=== PATIENT | female | born 2000 | race Caucasian/White ===

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

== ENCOUNTER 2021-01-16 14:40 | Outpatient (CLI) | payer OTHER | END 2021-01-16 14:41 | disposition home or self-care (01) | LOC: LAB.S 14:40 | PROVIDERS: ATTEND Internal Medicine | DX: Z13.89 Encounter for screening for other disorder (principal) | CPT/HCPCS: 36415; 86317 ==

== ENCOUNTER 2022-05-24 21:35 | Emergency (ER) | payer MEDICAID, OTHER ==
[2022-05-24 22:48] LABS: BASOPHILS # (AUTO) 0.2 10^3/uL (0.0-0.1); BASOPHILS % (AUTO) 2.3 %; EOSINOPHILS % (AUTO) 12.8 %; HCT - HEMATOCRIT 36.3 % (37.0-47.0); HGB - HEMOGLOBIN 12.2 g/dL (12.0-16.0); LYMPHOCYTES # (AUTO) 2.7 10^3/uL (1.5-3.5); LYMPHOCYTES % (AUTO) 34.2 %; MEAN CORPUSCULAR HEMOGLOBIN 31.4 pg (27.0-31.0); MEAN CORPUSCULAR HGB CONC 33.6 g/dL (32.0-36.0); MEAN CORPUSCULAR VOLUME 93.3 fL (81.0-99.0); MEAN PLATELET VOLUME 11.1 fL (7.9-10.8); MONOCYTES % (AUTO) 12.9 %; NEUTROPHILS % (AUTO) 37.5 %; PLT - PLATELET COUNT 322 10^3/uL (130-450); RED BLOOD COUNT 3.89 10^6/uL (4.20-5.40); RED CELL DISTRIBUTION WIDTH 12.9 % (12.0-15.0); WHITE BLOOD COUNT 7.9 x10^3/uL (4.8-10.8)
[2022-05-24 22:51] LABS: SLIDE REVIEW? Indicated
[2022-05-24 23:00] LABS: ALBUMIN 4.3 g/dL (3.2-5.5); ALBUMIN/GLOBULIN RATIO 1.3 (1.0-2.2); BILIRUBIN,TOTAL 0.3 mg/dL (0.2-1.0); CALCIUM 9.3 mg/dL (8.5-10.3); CREATININE 0.9 mg/dL (0.4-1.0); POTASSIUM 4.1 mmol/L (3.5-5.0); TOTAL PROTEIN 7.6 g/dL (6.7-8.2)
[2022-05-24] MEDS ORDERED: SODIUM CHLORIDE 0.9% 1,000 ML IV STA (23:08)
[2022-05-24] MEDS ORDERED: ONDANSETRON 4 MG/2 ML VIAL IVP STA (23:08)
[2022-05-24] MEDS ORDERED: MORPHINE 2 MG/ML CARPUJECT IVP STA (23:08)
[2022-05-24 23:12] LABS: DIFFERENTIAL COMMENT MANUAL=AUTO DIFF; PLATELET ESTIMATE, MANUAL NORMAL (130-450,000) (NORMAL); PLATELET MORPHOLOGY NORMAL APPEARANCE (NORMAL); RBC MORPHOLOGY (MULTIPLE) NORMAL APPEARANCE (NORMAL)
[2022-05-24 23:51] LABS: BILIRUBIN,URINE NEGATIVE (NEGATIVE); GLUCOSE, URINE (UA) NEGATIVE (NEGATIVE); KETONES,URINE (UA) NEGATIVE (NEGATIVE); LEUKOCYTE ESTERASE, URINE NEGATIVE (NEGATIVE); NITRITE,URINE NEGATIVE (NEGATIVE); OCCULT BLOOD,URINE NEGATIVE (NEGATIVE); PROTEIN,URINE NEGATIVE (NEGATIVE); UROBILINOGEN,URINE 0.2 (NORMAL) E.U./dL (NORMAL)
[2022-05-24 23:53] LABS: CLARITY,URINE HAZY (CLEAR); HCG UR QUAL NEGATIVE
[2022-05-25] LABS: AMORPHOUS SEDIMENT,UR Few /LPF; BACTERIA,URINE Rare /HPF (None Seen); RBC,URINE 0-5 /HPF (0-5); SQUAMOUS EPITHELIAL CELL,UR FEW Squamous (<= Few); WBC,URINE 0-3 /HPF (0-5)
--- NOTE | 2022-05-25 01:57 | CT Report ---
PROCEDURE: Abdomen/Pelvis W INDICATIONS: abd pain/ulcerative colitis CONTRAST: IV CONTRAST: Optiray 320 ml: 100 PO CONTRAST: *NO PO CONTRAST TECHNIQUE: After the administration of intravenous contrast, 5 mm thick sections acquired from the diaphragms to the symphysis. 5 mm thick coronal and sagittal reformats were acquired. For radiation dose reducti on, the following was used: automated exposure control, adjustment of mA and/or kV according to edwina ent size. COMPARISON: CT abdomen pelvis 08/28/2020. FINDINGS: Image quality: Excellent. Lung bases: Unremarkable. Heart: Heart is normal in size. ABDOMEN: Liver: No mass lesion. Gallbladder: Within normal limits without calcified gallstones. Biliary ducts: No biliary ductal dilatation. Pancreas: Unremarkable. Spleen: Normal in size. Adrenal Glands: No adrenal nodules. Kidneys and Ureters: No hydronephrosis. Stomach and Bowel: Stomach and small bowel loops are normal in caliber and wall thickness. The appen nicole is normal in appearance. There is segmental colonic wall thickening in the sigmoid colon with muc osal enhancement and pericolonic fat stranding consistent with a colitis. Peritoneum: No abnormal intraperitoneal fluid. No free air. Ventral Wall: No hernia. Abdominal Nodes: No retroperitoneal or mesenteric adenopathy by size criteria. Vessels: Aorta and inferior vena cava are normal in size. PELVIS: Pelvic Organs: Unremarkable. Bladder: Unremarkable. Pelvic Nodes: No enlarged lymph nodes. Miscellaneous: No inguinal hernias are seen. Bones: Visualized osseous structures demonstrate no suspicious focal lesions. IMPRESSION: 1. Segmental colonic wall thickening in the sigmoid colon with mucosal enhancement and pericolonic fa t stranding consistent with an infectious or inflammatory colitis. The findings likely reflect sequel ae of patient's reported history of ulcerative colitis. 2. No discrete abscess collection. No bowel obstruction. No definite fistulas identified. Reviewed by: Vance Man MD on 05/25/2022 1:56 AM PDT Approved by: Vance Man MD on 05/25/2022 1:56 AM PDT Station ID: [id number]
--- NOTE | 2022-05-25 02:22 | ED Physician Documentation ---
PD HPI ABD PAIN - Stated complaint Stated Complaint: ABD PAIN - Chief complaint Chief Complaint: Abd Pain - History obtained from History obtained from: Patient - Additional information Additional information: Patient presenting for evaluation of epigastric abdominal pain for 2 months. She has a history of ulcerative colitis and recently saw her GI doctor through [place]. They discussed increasing her UC medication but she was supposed to get labs done first which she had not yet. She reported that the pain was more severe today which prompted her to come to the ER. She has nausea but no vomit ing or fevers. She denies dysuria, vaginal bleeding or concerns for .She has had blood in her stools over the last 2 months and has discussed this with her GI doctor. Review of Systems Constitutional: denies: Fever Nose: denies: Congestion Cardiac: denies: Chest pain / pressure Respiratory: denies: Dyspnea GI: reports: Abdominal Pain, Nausea. denies: Vomiting : denies: Dysuria, Hematuria Musculoskeletal: denies: Back pain Neurologic: denies: Headache PD PAST MEDICAL HISTORY - Past Medical History Cardiovascular: Other Respiratory: None Neuro: None Endocrine/Autoimmune: None GI: GI bleed : None HEENT: None Psych: None Musculoskeletal: Chronic back pain, Other Derm: None - Past Surgical History Past Surgical History: No - Present Medications Home Medications: Ambulatory Orders Medication Instructions Recorded Confirmed Escitalopram [Lexapro] 10 mg PO DAILY 05/24/22 05/24/22 Ondansetron Odt [Zofran] 4 mg TL Q6H PRN #10 tablet 05/25/22 - Allergies Allergies/Adverse Reactions: Allergies Allergy/AdvReac Type Severity Reaction Status Date / Time No Known Drug Allergies Allergy Verified 05/24/22 21:56 - Social History Does the pt smoke?: No Smoking Status: Never smoker PD ED PE NORMAL - General General: Alert and oriented X 3, No acute distress, Well developed/nourished - HEENT HEENT: Atraumatic, Moist mucous membranes - Neck Neck: Supple, no meningeal sign - Cardiac Cardiac: RRR, No murmur, Strong equal pulses - Respiratory Respiratory: No respiratory distress, Clear bilaterally - Abdomen Abdomen: Normal bowel sounds, Soft, Non tender, Non distended - Derm Derm: Warm and dry - Extremities Extremities: No edema Results - Vitals Vitals: Vital Signs - 24 hr 05/24/22 05/25/22 21:53 02:33 Temperature 36.7 C 36.5 C Heart Rate 100 86 Respiratory 16 18 Rate Blood Pressure 134/76 H 132/76 H O2 Saturation 100 99 Oxygen O2 Source Room air - Labs Labs: Laboratory Tests 05/24/22 05/24/22 05/24/22 22:45 22:45 23:41 WBC 7.9 RBC 3.89 L Hgb 12.2 Hct 36.3 L MCV 93.3 MCH 31.4 H MCHC 33.6 RDW 12.9 Plt Count 322 MPV 11.1 H Neut # (Auto) 3.0 Lymph # (Auto) 2.7 [place] # (Auto) 1.0 Eos # (Auto) 1.0 H Baso # (Auto) 0.2 H Absolute Nucleated RBC 0.00 Band Neuts % (Manual) Not Reportable Abnorm Lymph % (Manual) Not Reportable Nucleated RBC % 0.0 Neutrophils # (Manual) Not Reportable Lymphocytes # (Manual) Not Reportable Monocytes # (Manual) Not Reportable Eosinophils # (Manual) Not Reportable Basophils # (Manual) Not Reportable Differential Comment MANUAL=AUTO DIFF Manual Slide Review Indicated Platelet Estimate NORMAL (130-450,000) Platelet Morphology NORMAL APPEARANCE RBC Morph Micro Appear NORMAL APPEARANCE Sodium 139 Potassium 4.1 Chloride 105 Carbon Dioxide 27 Anion Gap 7.0 BUN 15 Creatinine 0.9 Estimated GFR (MDRD) 80 L Glucose 87 Calcium 9.3 Total Bilirubin 0.3 AST 76 H ALT 127 H Alkaline Phosphatase 56 Total Protein 7.6 Albumin 4.3 Globulin 3.3 Albumin/Globulin Ratio 1.3 Lipase 54 H Urine Color YELLOW Urine Clarity HAZY Urine pH 8.0 H Ur Specific [place] 1.015 Urine Protein NEGATIVE Urine Glucose (UA) NEGATIVE Urine Ketones NEGATIVE Urine Occult Blood NEGATIVE Urine Nitrite NEGATIVE Urine Bilirubin NEGATIVE Urine Urobilinogen 0.2 (NORMAL) Ur Leukocyte Esterase NEGATIVE Urine RBC 0-5 Urine WBC 0-3 Ur Squamous Epith Cells FEW Squamous Amorphous Sediment Few Urine Bacteria Rare Ur Microscopic Review INDICATED Urine Culture Comments NOT INDICATED Urine HCG, Qual NEGATIVE PD MEDICAL DECISION MAKING - ED course Complexity details: reviewed results, re-evaluated patient, d/w patient, d/w family ED course: Patient presenting for evaluation of upper abdominal pain. Vital signs are stable. Mild tenderness on exam but overall exam is benign. Labs reviewed without significant abnormalities. CT scan reviewed with patient. She is feeling better. She is comfortable with plan for follow-up with her GI doctor. She reports that mesalamine enemas in the past have not been helpful for her. She prefers to discuss increasing her medication with her GI doctor early next week. Departure - Departure Disposition: 01 Home, Self Care Clinical Impression: Epigastric abdominal pain Condition: Stable Instructions: ED Abdominal Pain Female Non-Specific Abdominal Pain Prescriptions: Ondansetron Odt [Zofran] 4 mg TL Q6H PRN #10 tablet PRN Reason: Nausea / Vomiting Comments: You were evaluated for pain to your upper abdomen. Your labs are reassuring. A CT scan was also performed showing ulcerative colitis. Please call your GI doctor This weekend or on Friday to discuss your medication regimen. If you have any worsening symptoms please return to the ER. I have sent a prescription for nausea medications to [facility] in [place]. Discharge Date/Time: 05/25/22 02:33
[2022-05-25 02:34] VITALS: BP 132/76
== END 2022-05-25 02:33 | disposition home or self-care (01) ==
LOC: ED 21:35
DX: R10.13 Epigastric pain (principal)
CPT/HCPCS: 36415; 74177; 80053; 81001; 81025; 83690; 85025; 96361; 96374; 99284; Q9967; 81003; 87086

== ENCOUNTER 2022-05-26 08:00 | Outpatient (CLI) | payer MEDICAID ==
[2022-05-26 14:09] LABS: BASOPHILS # (AUTO) 0.1 10^3/uL (0.0-0.1); BASOPHILS % (AUTO) 1.6 %; EOSINOPHILS # (AUTO) 0.4 10^3/uL (0.0-0.7); EOSINOPHILS % (AUTO) 4.9 %; HCT - HEMATOCRIT 36.3 % (37.0-47.0); HGB - HEMOGLOBIN 12.3 g/dL (12.0-16.0); LYMPHOCYTES % (AUTO) 13.4 %; MEAN CORPUSCULAR HEMOGLOBIN 31.2 pg (27.0-31.0); MEAN CORPUSCULAR HGB CONC 33.9 g/dL (32.0-36.0); MEAN CORPUSCULAR VOLUME 92.1 fL (81.0-99.0); MEAN PLATELET VOLUME 11.2 fL (7.9-10.8); MONOCYTES # (AUTO) 0.4 10^3/uL (0.0-1.0); MONOCYTES % (AUTO) 5.8 %; NEUTROPHILS # (AUTO) 5.3 10^3/uL (1.5-6.6); NEUTROPHILS % (AUTO) 74.2 %; PLT - PLATELET COUNT 303 10^3/uL (130-450); RED BLOOD COUNT 3.94 10^6/uL (4.20-5.40); RED CELL DISTRIBUTION WIDTH 12.6 % (12.0-15.0); WHITE BLOOD COUNT 7.1 x10^3/uL (4.8-10.8)
[2022-05-26 14:18] LABS: ALBUMIN 4.3 g/dL (3.2-5.5); ALBUMIN/GLOBULIN RATIO 1.4 (1.0-2.2); BILIRUBIN,TOTAL 0.6 mg/dL (0.2-1.0); CALCIUM 9.4 mg/dL (8.5-10.3); CREATININE 0.6 mg/dL (0.4-1.0); TOTAL PROTEIN 7.4 g/dL (6.7-8.2)
== END 2022-05-26 23:59 | disposition home or self-care (01) ==
LOC: LAB 08:00
PROVIDERS: ATTEND Internal Medicine
DX: K51.90 Ulcerative colitis, unspecified, without complications (principal)
CPT/HCPCS: 36415; 80053; 81599; 83993; 85025

== ENCOUNTER 2022-05-27 02:37 | Emergency (ER) | payer MEDICAID ==
--- NOTE | 2022-05-27 02:56 | ED Physician Documentation ---
PD HPI ABD PAIN - Stated complaint Stated Complaint: ABD PX - Chief complaint Chief Complaint: Abd Pain - History obtained from History obtained from: Patient - History of Present Illness Timing - onset: How many months ago (2) Timing - details: Waxing and waning Pain level now: 6 Quality: Cramping, Pain Location: All over / everywhere Radiation: Other (does not radiate) Improved by: Other (nothing) Worsened by: Eating Associated symptoms: Diarrhea, Hematochezia. No: Fever, Nausea, Vomiting, Constipation, Melena Similar symptoms before: Diagnosis (ulcerative colitis) Recently seen: Emergency Dept - Additional information Additional information: T+R from this ED 05/24/22 for same symptoms. She has been having intermittent , generalized abdominal cramping pain with loose and frequently bloody stools x 2 months. She returns tonight due to be woken from sleep few hours ago due to worsening pain. She was started on prednisone yesterday by her primary care provider and initial dosing has been 40mg QD. Review of Systems Constitutional: denies: Fever, Chills, Sweats Cardiac: reports: Reviewed and negative Respiratory: reports: Reviewed and negative GI: reports: Abdominal Pain, Diarrhea, Bloody / black stool. denies: Abdominal Swelling, Nausea, Vomiting, Constipation : denies: Dysuria, Frequency, Now EGA Neurologic: denies: Generalized weakness PD PAST MEDICAL HISTORY - Past Medical History Past Medical History: Yes Cardiovascular: Other Respiratory: None Neuro: None Endocrine/Autoimmune: None GI: GI bleed, Ulcerative colitis, Other : None HEENT: None Psych: Anxiety Musculoskeletal: Chronic back pain, Other Derm: None - Past Surgical History Past Surgical History: No - Present Medications Home Medications: Ambulatory Orders Medication Instructions Recorded Confirmed Escitalopram [Lexapro] 10 mg PO DAILY 05/24/22 05/27/22 predniSONE [Deltasone] 40 mg PO DAILY 05/27/22 05/27/22 - Allergies Allergies/Adverse Reactions: Allergies Allergy/AdvReac Type Severity Reaction Status Date / Time No Known Drug Allergies Allergy Verified 05/27/22 02:45 - Social History Does the pt smoke?: No Smoking Status: Never smoker Does the pt drink ETOH?: No Does the pt have substance abuse?: No - Immunizations Immunizations are current?: Yes - POLST Patient has POLST: No PD ED PE NORMAL - Vitals Vital signs reviewed: Yes - General General: Alert and oriented X 3, No acute distress, Well developed/nourished - HEENT HEENT: Moist mucous membranes - Cardiac Cardiac: RRR, No murmur - Respiratory Respiratory: No respiratory distress, Clear bilaterally - Abdomen Abdomen: Soft, Non distended, Other (mild/moderate TTP across upper abdomen as well as RLQ. No guarding or rebound) - Back Back: No CVA TTP - Derm Derm: Normal color, Warm and dry Results - Vitals Vitals: Oxygen O2 Source Room air - Labs Labs: Laboratory Tests 05/27/22 05/27/22 05/27/22 02:56 02:56 02:56 WBC 9.6 RBC 3.74 L Hgb 11.7 L Hct 34.4 L MCV 92.0 MCH 31.3 H MCHC 34.0 RDW 12.7 Plt Count 331 MPV 11.2 H Neut # (Auto) 5.3 Lymph # (Auto) 2.4 [place] # (Auto) 1.5 H Eos # (Auto) 0.4 Baso # (Auto) 0.1 Absolute Nucleated RBC 0.00 Nucleated RBC % 0.0 ESR 20 Sodium 138 Potassium 3.8 Chloride 106 Carbon Dioxide 23 Anion Gap 9.0 BUN 13 Creatinine 0.5 Estimated GFR (MDRD) 157 Glucose 108 H Calcium 9.4 Total Bilirubin 0.4 AST 74 H ALT 124 H Alkaline Phosphatase 56 C-Reactive Protein < 1.0 Total Protein 7.4 Albumin 4.1 Globulin 3.3 Albumin/Globulin Ratio 1.2 Lipase 38 Urine Color Urine Clarity Urine pH Ur Specific [place] Urine Protein Urine Glucose (UA) Urine Ketones Urine Occult Blood Urine Nitrite Urine Bilirubin Urine Urobilinogen Ur Leukocyte Esterase Ur Microscopic Review Urine Culture Comments Urine HCG, Qual 05/27/22 05/27/22 03:26 03:26 WBC RBC Hgb Hct MCV MCH MCHC RDW Plt Count MPV Neut # (Auto) Lymph # (Auto) [place] # (Auto) Eos # (Auto) Baso # (Auto) Absolute Nucleated RBC Nucleated RBC % ESR Sodium Potassium Chloride Carbon Dioxide Anion Gap BUN Creatinine Estimated GFR (MDRD) Glucose Calcium Total Bilirubin AST ALT Alkaline Phosphatase C-Reactive Protein Total Protein Albumin Globulin Albumin/Globulin Ratio Lipase Urine Color YELLOW Urine Clarity CLEAR Urine pH 6.0 Ur Specific [place] >=1.030 H Urine Protein NEGATIVE Urine Glucose (UA) NEGATIVE Urine Ketones 40 H Urine Occult Blood TRACE-INTA Urine Nitrite NEGATIVE Urine Bilirubin NEGATIVE Urine Urobilinogen 0.2 (NORMAL) Ur Leukocyte Esterase NEGATIVE Ur Microscopic Review NOT INDICATED Urine Culture Comments NOT INDICATED Urine HCG, Qual NEGATIVE - Rads (name of study) CT A/P with IV contrast Radiology: Prelim report reviewed, See rad report PD MEDICAL DECISION MAKING - ED course Complexity details: reviewed old records, reviewed results, re-evaluated patient, considered differential, d/w patient ED course: Results of saturnino's blood tests are without concerning findings, and few abnormalities present are comparable to previous (mildly low hgb, mildly el evated AST/ALT). She has normal WBC, ESR, and CRP (the latter two were ordered as they are amongst the criteria considered for inpatient admission for IBD flares). CT A/P is repeated both to look for progression of the UC but also due to new onset of RLQ tenderness which she says was not present until earlier today (again, concern would be progression of IBD, with appendicitis having to be considered due to location). The CT scan show no significant change from previous CT with evidence of mild acute inflammation of sigmoid colon and rectum without complication. She is given 4mg IV morphine , 10mg IV decadron, 4mg IV zofran (to prevent nausea which she says she sometimes has with narcotic medication). On reevaluation , she is in NAD, smiling at times, although she says she does not feel she had any noticeable relief with the morphine. She is given a second dose of 4mg IV morphine. I subsequently reevaluated her , reviewed results with her and discussed with her that at this time there is no indication for admission. She is given take-home pack of percocet but no rx for pain medication. She is to resume her prednisone as previously prescribed including today's dose, and instructed to contact her GI doctor to discuss follow-up planning as well as to ascertain any other possible medication changes that might benefit her symptoms until she can be reevaluated in the office. She is given return precautions as well. Departure - Departure Disposition: 01 Home, Self Care Clinical Impression: Inflammatory bowel disease Condition: Good Instructions: ED Colitis Ulcerative Follow-Up: Carmita Ortiz ARNP [Primary Care Provider] - Comments: Contact your desktop support engineer this morning to see if they can reevaluate you within the next few days as well as to see if they have recommendations for any medication changes. Forms: Activity restrictions Discharge Date/Time: 05/27/22 06:57
[2022-05-27 03:03] LABS: BASOPHILS # (AUTO) 0.1 10^3/uL (0.0-0.1); BASOPHILS % (AUTO) 0.9 %; EOSINOPHILS # (AUTO) 0.4 10^3/uL (0.0-0.7); EOSINOPHILS % (AUTO) 3.6 %; HCT - HEMATOCRIT 34.4 % (37.0-47.0); HGB - HEMOGLOBIN 11.7 g/dL (12.0-16.0); LYMPHOCYTES # (AUTO) 2.4 10^3/uL (1.5-3.5); LYMPHOCYTES % (AUTO) 24.5 %; MEAN CORPUSCULAR HEMOGLOBIN 31.3 pg (27.0-31.0); MEAN PLATELET VOLUME 11.2 fL (7.9-10.8); MONOCYTES # (AUTO) 1.5 10^3/uL (0.0-1.0); MONOCYTES % (AUTO) 15.3 %; NEUTROPHILS # (AUTO) 5.3 10^3/uL (1.5-6.6); NEUTROPHILS % (AUTO) 55.5 %; PLT - PLATELET COUNT 331 10^3/uL (130-450); RED BLOOD COUNT 3.74 10^6/uL (4.20-5.40); RED CELL DISTRIBUTION WIDTH 12.7 % (12.0-15.0); WHITE BLOOD COUNT 9.6 x10^3/uL (4.8-10.8)
[2022-05-27 03:20] LABS: ALBUMIN 4.1 g/dL (3.2-5.5); ALBUMIN/GLOBULIN RATIO 1.2 (1.0-2.2); ALKALINE PHOSPHATASE 56 IU/L (42-121); ALT ALANINE AMINOTRANSFERASE 124 IU/L (10-60); AST ASPARTATE AMINOTRANSFERASE 74 IU/L (10-42); BILIRUBIN,TOTAL 0.4 mg/dL (0.2-1.0); BUN - BLOOD UREA NITROGEN 13 mg/dL (6-20); CALCIUM 9.4 mg/dL (8.5-10.3); CARBON DIOXIDE - CO2 23 mmol/L (21-32); CHLORIDE 106 mmol/L (101-111); CREATININE 0.5 mg/dL (0.4-1.0); GFR - MDRD 157 (>89); GLUCOSE 108 mg/dL (70-100); LIPASE 38 U/L (22-51); POTASSIUM 3.8 mmol/L (3.5-5.0); SODIUM 138 mmol/L (135-145); TOTAL PROTEIN 7.4 g/dL (6.7-8.2)
[2022-05-27] MEDS ORDERED: MORPHINE 2 MG/ML CARPUJECT IVP STA ×2 (03:27→06:04)
[2022-05-27] MEDS ORDERED: ONDANSETRON 4 MG/2 ML VIAL IVP STA (03:27)
[2022-05-27 03:30] LABS: BILIRUBIN,URINE NEGATIVE (NEGATIVE); GLUCOSE, URINE (UA) NEGATIVE (NEGATIVE); KETONES,URINE (UA) 40 mg/dL (NEGATIVE); LEUKOCYTE ESTERASE, URINE NEGATIVE (NEGATIVE); NITRITE,URINE NEGATIVE (NEGATIVE); OCCULT BLOOD,URINE TRACE-INTA (NEGATIVE); PROTEIN,URINE NEGATIVE (NEGATIVE); UROBILINOGEN,URINE 0.2 (NORMAL) E.U./dL (NORMAL)
[2022-05-27 03:32] LABS: CLARITY,URINE CLEAR (CLEAR)
[2022-05-27 03:34] LABS: CRP - C-REACTIVE PROTEIN < 1.0 mg/dL (0-1.0)
[2022-05-27 03:34] LABS: HCG UR QUAL NEGATIVE
[2022-05-27] MEDS ORDERED: DEXAMETHASONE 10 MG/ML VIAL IVP STA (06:04)
[2022-05-27] MEDS ORDERED: oxyCODONE/ACET 5/325 Prepack 4 PO STA (06:46)
[2022-05-27 06:54] VITALS: BP 112/75
--- NOTE | 2022-05-27 10:07 | CT Report ---
PROCEDURE: Abdomen/Pelvis W INDICATIONS: abdominal pain CONTRAST: IV CONTRAST: Optiray 320 ml: 100 PO CONTRAST: *NO PO CONTRAST TECHNIQUE: After the administration of IV contrast, 5 mm thick sections acquired from the diaphragms to the symp hysis. 5 mm thick coronal and sagittal reformats were acquired. For radiation dose reduction, the f ollowing was used: automated exposure control, adjustment of mA and/or kV according to patient size. COMPARISON: 05/25/2022 FINDINGS: Image quality: Excellent. ABDOMEN: Lung bases: Lung bases are clear. Heart size is normal. Solid organs: Liver and spleen are normal in size and enhancement. Gallbladder is decompressed. Bi liary system is non dilated. Pancreas enhances normally. No adrenal nodules. Kidneys demonstrate n ormal size and enhancement, without hydronephrosis. Peritoneum and bowel: Stomach and small bowel loops appear normal. There is mild spasm, circumferenti al wall thickening, and mucosal hyperemia involving the distal descending colon, sigmoid colon, and r ectum in a contiguous fashion. There is mild hyperemia of the adjacent vasculature and mild mesenteri c adenopathy in this region. No significant pericolonic inflammatory changes, adjacent fluid, or free air. Nodes and vessels: No bulky retroperitoneal or mesenteric adenopathy by size criteria. Aorta and in ferior vena cava are normal in size. Miscellaneous: No ventral hernias. PELVIS: Genitourinary: Bladder wall thickness is normal. Uterus and ovaries are normal. Miscellaneous: No inguinal hernias or adenopathy. Bones: No suspicious bony lesions. No vertebral body compression fractures. IMPRESSION: 1. No significant change since the prior study demonstrating mild acute inflammation involving the di stal colon and rectum. 2. No evidence of complication. 3. Final interpretation concordant with preliminary report. Reviewed by: Oma Eddy MD on 05/27/2022 10:05 AM PDT Approved by: Oma Eddy MD on 05/27/2022 10:05 AM PDT Station ID: [id number]
== END 2022-05-27 06:57 | disposition home or self-care (01) ==
LOC: ED 02:37
DX: K52.9 Noninfective gastroenteritis and colitis, unspecified (principal)
CPT/HCPCS: 36415; 74177; 80053; 81003; 81025; 83690; 85025; 85651; 86140; 96374; 96375; 96376; 99284; Q9967; 81001; 87086

== ENCOUNTER 2022-06-13 07:34 | Outpatient (CLI) | payer MEDICAID | END 2022-06-13 07:35 | disposition home or self-care (01) | LOC: LAB 07:34 | PROVIDERS: ATTEND Internal Medicine | DX: K51.90 Ulcerative colitis, unspecified, without complications (principal) | CPT/HCPCS: 83993 ==

== ENCOUNTER 2022-11-27 08:51 | Emergency (ER) | payer MEDICAID ==
[2022-11-27 09:18] LABS: BILIRUBIN,URINE NEGATIVE (NEGATIVE); GLUCOSE, URINE (UA) NEGATIVE (NEGATIVE); KETONES,URINE (UA) NEGATIVE (NEGATIVE); LEUKOCYTE ESTERASE, URINE NEGATIVE (NEGATIVE); NITRITE,URINE NEGATIVE (NEGATIVE); OCCULT BLOOD,URINE NEGATIVE (NEGATIVE); PROTEIN,URINE NEGATIVE (NEGATIVE); UROBILINOGEN,URINE 0.2 (NORMAL) E.U./dL (NORMAL)
[2022-11-27 09:19] LABS: CLARITY,URINE CLEAR (CLEAR)
[2022-11-27 09:21] LABS: BASOPHILS # (AUTO) 0.1 10^3/uL (0.0-0.1); BASOPHILS % (AUTO) 0.6 %; EOSINOPHILS # (AUTO) 0.2 10^3/uL (0.0-0.7); EOSINOPHILS % (AUTO) 1.4 %; HCT - HEMATOCRIT 37.3 % (37.0-47.0); HGB - HEMOGLOBIN 12.6 g/dL (12.0-16.0); LYMPHOCYTES # (AUTO) 1.8 10^3/uL (1.5-3.5); LYMPHOCYTES % (AUTO) 16.4 %; MEAN CORPUSCULAR HEMOGLOBIN 30.9 pg (27.0-31.0); MEAN CORPUSCULAR HGB CONC 33.8 g/dL (32.0-36.0); MEAN CORPUSCULAR VOLUME 91.4 fL (81.0-99.0); MEAN PLATELET VOLUME 10.7 fL (7.9-10.8); MONOCYTES # (AUTO) 1.1 10^3/uL (0.0-1.0); MONOCYTES % (AUTO) 10.3 %; NEUTROPHILS # (AUTO) 7.6 10^3/uL (1.5-6.6); PLT - PLATELET COUNT 251 10^3/uL (130-450); RED BLOOD COUNT 4.08 10^6/uL (4.20-5.40); RED CELL DISTRIBUTION WIDTH 12.8 % (12.0-15.0); WHITE BLOOD COUNT 10.7 x10^3/uL (4.8-10.8)
[2022-11-27 09:21] LABS: HCG UR QUAL NEGATIVE
[2022-11-27 09:32] LABS: ALBUMIN 4.2 g/dL (3.2-5.5); ALBUMIN/GLOBULIN RATIO 1.2 (1.0-2.2); BILIRUBIN,TOTAL 0.4 mg/dL (0.2-1.0); CREATININE 0.6 mg/dL (0.4-1.0); POTASSIUM 3.9 mmol/L (3.5-5.0); TOTAL PROTEIN 7.7 g/dL (6.7-8.2)
[2022-11-27] MEDS ORDERED: DEXAMETHASONE 10 MG/ML VIAL IV STA (10:16)
[2022-11-27] MEDS ORDERED: SODIUM CHLORIDE 0.9% 1,000 ML IV STA (10:16)
[2022-11-27] MEDS ORDERED: ONDANSETRON 4 MG/2 ML VIAL IVP STA (10:16)
[2022-11-27] MEDS ORDERED: HYDROmorphone 0.5 MG/0.5 ML SYRINGE IVP STA (10:17)
[2022-11-27 11:07] VITALS: BP 105/64
--- NOTE | 2022-11-27 11:34 | ED Physician Documentation ---
History of Present Illness - Stated complaint Stated Complaint: ABD PX/BLOATING - Chief complaint Chief Complaint: Abd Pain - History obtained from History obtained from: Patient - Additonal information Additional information: The patient comes to the emergency department chief complaint of abdominal bloating, cramping, and sharp pains that started overnight. She states it feels like a flare of her Ulcerative colitis, though her diarrhea is not bloody like it usually is. The patient denies any fevers or chills. The patient states she has not had any vomiting and gets nauseated only if the pain gets really bad. She does not feel like she is sick with anything else and feels like the symptoms are consistent with her ulcerative colitis. She is currently getting an infusion every 6 weeks through her medical records technician for her colitis. She states that when she has had flares before, IV steroids have helped but the oral steroids generally have not been very helpful for her. PD PAST MEDICAL HISTORY - Past Medical History Cardiovascular: Other Respiratory: None Neuro: None Endocrine/Autoimmune: None GI: GI bleed, Ulcerative colitis, Other : None HEENT: None Psych: Anxiety Musculoskeletal: Chronic back pain, Other Derm: None - Past Surgical History Past Surgical History: No - Present Medications Home Medications: Ambulatory Orders Medication Instructions Recorded Confirmed Escitalopram [Lexapro] 10 mg PO DAILY 05/24/22 05/27/22 predniSONE [Deltasone] 40 mg PO DAILY 05/27/22 05/27/22 HYDROcod/ACETAM 5/325 [[place] 5/325] 1 - 2 tablet PO Q6H PRN #14 tablet 11/27/22 Ondansetron Odt [Zofran] 4 mg TL Q6H PRN #10 tablet 11/27/22 - Allergies Allergies/Adverse Reactions: Allergies Allergy/AdvReac Type Severity Reaction Status Date / Time No Known Drug Allergies Allergy Verified 11/27/22 08:59 - Social History Does the pt smoke?: No Smoking Status: Never smoker Does the pt drink ETOH?: No Does the pt have substance abuse?: No - Immunizations Immunizations are current?: Yes - POLST Patient has POLST: No PD ED PE NORMAL - Vitals Vital signs reviewed: Yes - General General: Alert and oriented X 3, No acute distress, Well developed/nourished - HEENT HEENT: Atraumatic, PERRL, EOMI, Moist mucous membranes - Neck Neck: Supple, no meningeal sign - Cardiac Cardiac: RRR, No murmur, Strong equal pulses - Respiratory Respiratory: No respiratory distress, Clear bilaterally - Abdomen Abdomen: Soft, Non distended, Other (Mild tenderness right upper quadrant, epigastrium, and left lower quadrant. No rebound or guarding.) - Derm Derm: Normal color, Warm and dry, No rash - Extremities Extremities: No deformity, No edema - Neuro Neuro: Alert and oriented X 3 - Psych Psych: Normal mood, Normal affect Results - Vitals Vitals: Vital Signs - 24 hr 11/27/22 11/27/22 08:56 11:00 Temperature 36.8 C Heart Rate 109 H 62 Respiratory 16 14 Rate Blood Pressure 141/77 H 105/64 O2 Saturation 100 99 Oxygen O2 Source Room air - Labs Labs: Laboratory Tests 11/27/22 11/27/22 11/27/22 09:00 09:15 09:15 WBC 10.7 RBC 4.08 L Hgb 12.6 Hct 37.3 MCV 91.4 MCH 30.9 MCHC 33.8 RDW 12.8 Plt Count 251 MPV 10.7 Neut # (Auto) 7.6 H Lymph # (Auto) 1.8 [place] # (Auto) 1.1 H Eos # (Auto) 0.2 Baso # (Auto) 0.1 Absolute Nucleated RBC 0.00 Nucleated RBC % 0.0 Sodium 137 Potassium 3.9 Chloride 107 Carbon Dioxide 22 Anion Gap 8.0 BUN 13 Creatinine 0.6 Estimated GFR (MDRD) 126 Glucose 105 H Calcium 9.0 Total Bilirubin 0.4 AST 23 ALT 20 Alkaline Phosphatase 49 Total Protein 7.7 Albumin 4.2 Globulin 3.5 Albumin/Globulin Ratio 1.2 Lipase 45 Urine Color YELLOW Urine Clarity CLEAR Urine pH 6.0 Ur Specific [place] 1.025 Urine Protein NEGATIVE Urine Glucose (UA) NEGATIVE Urine Ketones NEGATIVE Urine Occult Blood NEGATIVE Urine Nitrite NEGATIVE Urine Bilirubin NEGATIVE Urine Urobilinogen 0.2 (NORMAL) Ur Leukocyte Esterase NEGATIVE Ur Microscopic Review NOT INDICATED Urine Culture Comments NOT INDICATED Urine HCG, Qual NEGATIVE PD Medical Decision Making - ED course Complexity details: reviewed results, re-evaluated patient, considered differential, d/w patient ED course: I discussed with the patient that her abdominal exam is actually fairly benign and I do not feel that she needs imaging today, given that we have gotten CBC and ER abdominal panel, both of which have been reviewed by me, and she does not have a white count or any other concerning findings on her labs. Additionally, her symptoms are consistent with prior colitis flares. The patient is agreeable to this plan. She is feeling better after Decadron, Dilaudid, and Zofran and is stable for discharge home. I have sent prescriptions to the pharmacy of the patient's choice for symptomatic management. We have discussed the usual indications for follow-up and return. Departure - Departure Disposition: Home, Self Care Clinical Impression: Abdominal pain Qualifiers: Abdominal location: generalized Qualified Code(s): R10.84 - Generalized abdominal pain Ulcerative colitis Qualifiers: Ulcerative colitis location: unspecified ulcerative colitis location Digestive disease complication type: without complication Qualified Code(s): K51.90 - Ulcerative colitis, unspecified, without complications Condition: Stable Instructions: ED Colitis Ulcerative Prescriptions: HYDROcod/ACETAM 5/325 [[place] 5/325] 1 - 2 tablet PO Q6H PRN #14 tablet PRN Reason: Pain Ondansetron Odt [Zofran] 4 mg TL Q6H PRN #10 tablet PRN Reason: Nausea / Vomiting Comments: Your labs look great today. Prescriptions for nausea and pain medicine have been electronically [facility] to [facility] in [place]. Please follow-up with your medical records technician as planned.
== END 2022-11-27 11:44 | disposition home or self-care (01) ==
LOC: ED 08:51
DX: R10.84 Generalized abdominal pain (principal); K51.90 Ulcerative colitis, unspecified, without complications
CPT/HCPCS: 36415; 80053; 81003; 81025; 83690; 85025; 96374; 96375; 99283; J1170; 81001; 87086

== ENCOUNTER 2022-12-29 19:50 | Emergency (ER) | payer MEDICAID ==
[2022-12-29] MEDS ORDERED: TETANUS/DIPHTHERIA/PERTUSSIS 0.5 ML SYRINGE IM ONE (20:52)
--- NOTE | 2022-12-29 21:00 | ED Physician Documentation ---
History of Present Illness - Stated complaint Stated Complaint: LT FOOT INJURY/KANE NAIL - Chief complaint Chief Complaint: Laceration - Additonal information Additional information: 22-year-old female presents emergency department for evaluation of a puncture wound to her left foot. She stepped on a kane nail that went directly through her clog. She reports that she had to pull the nail out of her foot and reports it was stuck quite deeply. She is here for tetanus update. She is immune suppressed on Entyvio for history of Crohn's disorder. Patient also requesting up-to-date tetanus Review of Systems Constitutional: denies: Fever, Chills Skin: reports: Lesions (Puncture wound sole of left foot) PD PAST MEDICAL HISTORY - Past Medical History Cardiovascular: Other Respiratory: None Neuro: None Endocrine/Autoimmune: None GI: GI bleed, Ulcerative colitis, Other : None HEENT: None Psych: Anxiety Musculoskeletal: Chronic back pain, Other Derm: None - Past Surgical History Past Surgical History: No - Present Medications Home Medications: Ambulatory Orders Medication Instructions Recorded Confirmed Escitalopram [Lexapro] 10 mg PO DAILY 05/24/22 05/27/22 Ciprofloxacin HCl [Cipro] 500 mg PO BID #10 tablet 12/29/22 Medroxyprogesterone Acetate 12/29/22 12/29/22 [Depo-Provera] Vedolizumab [Entyvio] 12/29/22 12/29/22 cephALEXin [Keflex] 500 mg PO Q6H #20 cap 12/29/22 - Allergies Allergies/Adverse Reactions: Allergies Allergy/AdvReac Type Severity Reaction Status Date / Time No Known Drug Allergies Allergy Verified 12/29/22 19:54 - Social History Does the pt smoke?: No Smoking Status: Never smoker Does the pt drink ETOH?: No Does the pt have substance abuse?: No - Immunizations Immunizations are current?: Yes - POLST Patient has POLST: No PD ED PE EXPANDED - Extremities Extremities: Left foot (Puncture wound present on the plantar aspect of the sole left foot. No surrounding erythema.) Results - Vitals Vitals: Vital Signs - 24 hr 12/29/22 19:52 Temperature 36.6 C Heart Rate 87 Respiratory 16 Rate Blood Pressure 132/70 H O2 Saturation 100 Oxygen O2 Source Room air PD Medical Decision Making - ED course Complexity details: considered differential, d/w patient ED course: 22-year-old female here for tetanus updating as she stepped on a kane nail through an intact shoe. However she has a history of immune suppression and is on Entyvio for treatment of her Crohn's disorder. According to current up-to-date guidelines that she would meet the criteria for prophylactic antibiotic treatment. This would include a floroquinolone. I discussed with patient the risks and benefits of using a floroquinolone which includes the concern of tendon injury or rupture. However patient acquiesced and would like to take the course of antibiotics which will include oral Keflex and Cipro. Tetanus was updated today in the ER. We discussed the usual conservative care measures for puncture wounds as well as return precautions for concerns of infection Departure - Departure Disposition: 01 Home, Self Care Clinical Impression: History of immune disorder Puncture wound of plantar aspect of left foot Qualifiers: Encounter type: initial encounter Qualified Code(s): S91.332A - Puncture wound without foreign body, left foot, initial encounter Condition: Stable Record reviewed to determine appropriate education?: Yes Instructions: ED Wound Puncture General Prescriptions: Ciprofloxacin HCl [Cipro] 500 mg PO BID #10 tablet cephALEXin [Keflex] 500 mg PO Q6H #20 cap Comments: Leona you punctured your left foot on a kane nail through an intact shoe. We have updated your tetanus today. Because you are on Entyvio, a biologic agent used in the management of your Crohn disease, this does put you at higher risk of infection. As such we will start you on a 5-day course of prophylactic antibiotics to help prevent infection. A medication called Cipro was sent to the [facility] pharmacy. You will take this twice daily. Cephalexin will be taken 4 times a day. I recommend the place a warm compress over this foot for 10 minutes 2-3 times a day to help alleviate any pain and allow drainage to open up if it will. Return immediately to the ER if you have any concerns of infection, fevers or worsening pain in the foot. Your tetanus was updated today and should be current for the next 7 to 10 years.
[2022-12-29 21:06] VITALS: BP 131/81
== END 2022-12-29 21:06 | disposition home or self-care (01) ==
LOC: ED 19:50
DX: S91.332A Puncture wound without foreign body, left foot, initial encounter (principal); W45.0XXA Nail entering through skin, initial encounter; Z23 Encounter for immunization; Z71.85 Encounter for immunization safety counseling
CPT/HCPCS: 90471; 99283

== ENCOUNTER 2024-04-02 17:04 | Emergency (ER) | payer SELFPAY ==
[2024-04-02 17:49] LABS: BASOPHILS # (AUTO) 0.1 10^3/uL (0.0-0.1); BASOPHILS % (AUTO) 0.9 %; EOSINOPHILS # (AUTO) 0.1 10^3/uL (0.0-0.7); EOSINOPHILS % (AUTO) 0.9 %; HGB - HEMOGLOBIN 13.7 g/dL (12.0-16.0); LYMPHOCYTES # (AUTO) 2.1 10^3/uL (1.5-3.5); LYMPHOCYTES % (AUTO) 21.9 %; MEAN CORPUSCULAR HEMOGLOBIN 31.5 pg (27.0-31.0); MEAN CORPUSCULAR HGB CONC 34.3 g/dL (32.0-36.0); MEAN PLATELET VOLUME 10.8 fL (7.9-10.8); MONOCYTES # (AUTO) 0.8 10^3/uL (0.0-1.0); NEUTROPHILS # (AUTO) 6.3 10^3/uL (1.5-6.6); NEUTROPHILS % (AUTO) 67.1 %; PLT - PLATELET COUNT 287 10^3/uL (130-450); RED BLOOD COUNT 4.35 10^6/uL (4.20-5.40); RED CELL DISTRIBUTION WIDTH 12.2 % (12.0-15.0); WHITE BLOOD COUNT 9.4 x10^3/uL (4.8-10.8)
[2024-04-02 18:03] LABS: ALBUMIN 4.7 g/dL (3.2-5.5); ALBUMIN/GLOBULIN RATIO 1.4 (1.0-2.2); BILIRUBIN,TOTAL 0.6 mg/dL (0.2-1.0); CALCIUM 10.1 mg/dL (8.5-10.3); CREATININE 0.7 mg/dL (0.6-1.3); POTASSIUM 3.6 mmol/L (3.5-4.5); TOTAL PROTEIN 8.1 g/dL (6.4-8.9)
[2024-04-02] MEDS ORDERED: iohexoL-300 100 ML VIAL ONE (18:09)
--- NOTE | 2024-04-02 18:10 | ED Physician Documentation ---
PD HPI ABD PAIN - Stated complaint Stated Complaint: ABD PX, WEAKNESS, FATIGUE - Chief complaint Chief Complaint: Abd Pain - History obtained from History obtained from: Patient - Additional information Additional information: She has a history of ulcerative colitis and was diagnosed about 4 years ago. Because of some insurance lapses and other issues she was lost to follow-up with regards to her Entyvio infusion having had her last 1 about 10 weeks ago. Over the last 2 days has had right lower quadrant pain which is very atypical for her UC and fevers chills and bodyaches. No diarrhea or bloody stools. No mucousy stools. PD PAST MEDICAL HISTORY - Past Medical History Past Medical History: Yes Cardiovascular: Other Respiratory: None Neuro: None Endocrine/Autoimmune: None GI: GI bleed, Ulcerative colitis, Other : None HEENT: None Psych: Anxiety Musculoskeletal: Chronic back pain, Other Derm: None - Past Surgical History Past Surgical History: No - Present Medications Home Medications: Ambulatory Orders Medication Instructions Recorded Confirmed Escitalopram [Lexapro] 10 mg PO DAILY 05/24/22 04/02/24 Medroxyprogesterone Acetate 150 mg IM UD 12/29/22 04/02/24 [Depo-Provera] Vedolizumab [Entyvio] 300 mg IV UD 12/29/22 04/02/24 HYDROcod/ACETAM 5/325 [[place] 5/325] 1 - 2 tab PO Q6H PRN #10 tablet 04/02/24 cephALEXin [Keflex] 500 mg PO Q6H 5 Days #20 cap 04/02/24 - Allergies Allergies/Adverse Reactions: Allergies Allergy/AdvReac Type Severity Reaction Status Date / Time No Known Drug Allergies Allergy Verified 04/02/24 17:28 - Social History Does the pt smoke?: No Smoking Status: Never smoker Does the pt drink ETOH?: No Does the pt have substance abuse?: No - Immunizations Immunizations are current?: Yes - POLST Patient has POLST: No PD ED PE NORMAL - Vitals Vital signs reviewed: Yes - General General: Alert and oriented X 3, No acute distress - Cardiac Cardiac: RRR, No murmur - Respiratory Respiratory: No respiratory distress, Clear bilaterally - Abdomen Abdomen: Normal bowel sounds, Soft, Other (Focally tender in the right lower quadrant without surgical signs) Results - Vitals Vitals: Vital Signs - 24 hr 04/02/24 04/02/24 04/02/24 17:24 18:55 19:31 Temperature 36.6 C Heart Rate 104 H 74 74 Respiratory 16 16 16 Rate Blood Pressure 142/86 H 138/71 H 121/70 O2 Saturation 98 99 99 Oxygen O2 Source Room air - Labs Labs: Laboratory Tests 04/02/24 04/02/24 04/02/24 17:44 17:44 18:24 WBC 9.4 RBC 4.35 Hgb 13.7 Hct 40.0 MCV 92.0 MCH 31.5 H MCHC 34.3 RDW 12.2 Plt Count 287 MPV 10.8 Neut # (Auto) 6.3 Lymph # (Auto) 2.1 [place] # (Auto) 0.8 Eos # (Auto) 0.1 Baso # (Auto) 0.1 Absolute Nucleated RBC 0.00 Nucleated RBC % 0.0 Sodium 140 Potassium 3.6 Chloride 107 Carbon Dioxide 24 Anion Gap 9.0 BUN 7 Creatinine 0.7 Estimated GFR (MDRD) 105 Glucose 96 Calcium 10.1 Total Bilirubin 0.6 AST 27 ALT 28 Alkaline Phosphatase 48 Total Protein 8.1 Albumin 4.7 Globulin 3.4 Albumin/Globulin Ratio 1.4 Lipase 32 Urine Color YELLOW Urine Clarity HAZY Urine pH 7.0 Ur Specific [place] 1.015 Urine Protein 30 H Urine Glucose (UA) NEGATIVE Urine Ketones NEGATIVE Urine Occult Blood MODERATE H Urine Nitrite NEGATIVE Urine Bilirubin NEGATIVE Urine Urobilinogen 0.2 (NORMAL) Ur Leukocyte Esterase MODERATE H Urine RBC 11-25 H Urine WBC >25 H Ur Squamous Epith Cells FEW Squamous Urine Bacteria Moderate H Ur Microscopic Review INDICATED Urine Culture Comments INDICATED Urine HCG, Qual 04/02/24 18:24 WBC RBC Hgb Hct MCV MCH MCHC RDW Plt Count MPV Neut # (Auto) Lymph # (Auto) [place] # (Auto) Eos # (Auto) Baso # (Auto) Absolute Nucleated RBC Nucleated RBC % Sodium Potassium Chloride Carbon Dioxide Anion Gap BUN Creatinine Estimated GFR (MDRD) Glucose Calcium Total Bilirubin AST ALT Alkaline Phosphatase Total Protein Albumin Globulin Albumin/Globulin Ratio Lipase Urine Color Urine Clarity Urine pH Ur Specific [place] Urine Protein Urine Glucose (UA) Urine Ketones Urine Occult Blood Urine Nitrite Urine Bilirubin Urine Urobilinogen Ur Leukocyte Esterase Urine RBC Urine WBC Ur Squamous Epith Cells Urine Bacteria Ur Microscopic Review Urine Culture Comments Urine HCG, Qual NEGATIVE - Rads (name of study) CT abdomen pelvis demonstrating cystitis with normal appendix and no other inflammatory process identified. Relevant Findings:: Final report received, EMP independent interpretation of test PD Medical Decision Making - ED course ED course: She presents with right lower quadrant pain in the setting of a few days of urinary symptoms such as frequency and dysuria as well. She is thinking she has a UC flare given that she has been off her Entyvio. Her symptoms would also be concerning for appendicitis. Subsequently labs showed no elevation of her white count with a normal CBC, CMP. She did have pyuria with negative test. CT showing signs of cystitis but no other active process. She was treated here with Toradol, Dilaudid and subsequently Rocephin with good improvement in her pain. Departure - Departure Disposition: 01 Home, Self Care Clinical Impression: Cystitis, Abdominal pain Condition: Good Record reviewed to determine appropriate education?: Yes Instructions: ED Abdominal Pain Female Non-Specific Abdominal Pain, ED UTI Cystitis Female Prescriptions: cephALEXin [Keflex] 500 mg PO Q6H 5 Days #20 cap HYDROcod/ACETAM 5/325 [[place] 5/325] 1 - 2 tab PO Q6H PRN #10 tablet PRN Reason: Pain Comments: I sent your prescription electronically to the [facility] in [place]. You have evidence of a bladder infection today both on CT imaging and the urinalysis. There is no sign on the CAT scan that you are ulcerative colitis is acting up and you do not have appendicitis. We will culture your urine, the results should be done in 48-72 hours. If an antibiotic change is necessary we will call you. Return if worse in the meantime, especially if you develop increasing flank pain, fevers, or cannot keep down the medication. Follow-up with your nurse practitioner in [place]. I am prescribing a short course of narcotic pain medication for you. These are potentially dangerous and addictive medications that should be used carefully. These medications may constipate you. Take an [id number]-[id number] stool softener (docusate) twice daily with plenty of water while taking these medications. If you go 24 hours without a bowel movement, take [id number] miralax, per package instructions. Do not drink or drive while taking these medications. If you received narcotic or sedating medications while in the emergency depar tment, do not drive for 24 hours. Store this medication in a safe, secure place and out of reach of children. It is a violation of federal law to give or sell this medication to another person or to use in a manner other than prescribed. The ED will not refill narcotic prescriptions, including prescriptions lost or stolen. To dispose of unwanted medications: 1. [facility] provides a drop box for medication in pill form only (no liquids) 8:00 am to 4:30 p.m. Friday-Friday in the lobby of the [facility] [place], [address] [place] [address]. Empty pills into ziplock bag before disposal. Call [phone] for information. 2.[employer] is a free service available to all [facility] residents. Go to [email or web address] Note that many narcotic pain relievers also contain Tylenol/acetaminophen. Please ensure that your total dose of acetaminophen from all sources does not exceed 3 g (3000 mg) per day. Forms: PCP List
[2024-04-02] MEDS: KETOROLAC 15 MG/ML VIAL IVP STA (18:18)
[2024-04-02] MEDS: HYDROmorphone 0.5 MG/0.5 ML SYRINGE IVP STA (18:19)
[2024-04-02 18:32] LABS: BILIRUBIN,URINE NEGATIVE (NEGATIVE); GLUCOSE, URINE (UA) NEGATIVE (NEGATIVE); KETONES,URINE (UA) NEGATIVE (NEGATIVE); LEUKOCYTE ESTERASE, URINE MODERATE (NEGATIVE); NITRITE,URINE NEGATIVE (NEGATIVE); OCCULT BLOOD,URINE MODERATE (NEGATIVE); PROTEIN,URINE 30 mg/dL (NEGATIVE); UROBILINOGEN,URINE 0.2 (NORMAL) E.U./dL (NORMAL)
[2024-04-02 18:35] LABS: HCG UR QUAL NEGATIVE
[2024-04-02 18:39] LABS: CLARITY,URINE HAZY (CLEAR); SQUAMOUS EPITHELIAL CELL,UR FEW Squamous (<= Few); WBC,URINE >25 /HPF (0-5)
[2024-04-02 18:40] LABS: BACTERIA,URINE Moderate /HPF (None Seen)
[2024-04-02 18:58] VITALS: O2SAT 99
[2024-04-02] MEDS: iohexoL-300 100 ML VIAL IVP ONE (18:59)
--- NOTE | 2024-04-02 19:17 | CT Report ---
PROCEDURE: Abdomen/Pelvis W INDICATIONS: iv only rlq pain CONTRAST: 100ml omni 300 TECHNIQUE: After the administration of intravenous contrast, a CT scan of the abdomen and pelvis was performed. Images were recorded and evaluated at appropriate window settings. Reformats: coronal and sagittal. F or radiation dose reduction, the following was used: automated exposure control, adjustment of mA and /or kV according to patient size. COMPARISON: CT abdomen/pelvis 05/27/2020 to FINDINGS: Image quality: Diagnostic. Lower chest: Unremarkable. Liver: No solid mass. Gallbladder: No radiopaque stones or wall thickening. Biliary tree: No intrahepatic or extrahepatic dilation, accounting for age. Spleen: No splenomegaly. Pancreas: No pancreatic ductal dilation. Adrenals: No adrenal nodule. Kidneys and ureters: No hydronephrosis. No renal cystic lesion which requires follow up. No solid mas s. Stomach, bowel and peritoneum: No gastric or small bowel dilation. No abnormal wall thickening. No pa thologic free fluid. Normal appendix. Lymph nodes: No central or retroperitoneal adenopathy. Vessels: No infrarenal aortic aneurysm. Patent portal vein. PELVIS Reproductive organs: Unremarkable. Bladder: Mild circumferential bladder wall thickening versus underdistention. Pelvic lymph nodes: No pelvic adenopathy by size criteria. Bones: No aggressive osseous abnormality. Other: No significant ventral or inguinal hernia. IMPRESSION: 1.Circumferential bladder wall thickening may be related to underdistention versus mild cystitis. 2.Otherwise, no acute abnormality identified in the abdomen or pelvis. Normal appendix. Reviewed by: Nimesh Figueroa MD on 04/02/2024 7:16 PM PDT Approved by: Nimesh Figueroa MD on 04/02/2024 7:16 PM PDT Station ID: [id number]
[2024-04-02] MEDS: cefTRIAXone 1 GM VIAL IVP STA (19:59)
[2024-04-02] MEDS: HYDROcod/ACET 5/325 Prepack 4 PO STA (20:00)
[2024-04-02] MEDS: HYDROmorphone 1 MG/ML CARPUJECT IVP STA (20:00)
[2024-04-02 20:17] VITALS: BP 122/68
== END 2024-04-02 20:11 | disposition home or self-care (01) ==
LOC: ED 17:04
DX: N30.90 Cystitis, unspecified without hematuria (principal); Z87.19 Personal history of other diseases of the digestive system
CPT/HCPCS: 36415; 74177; 80053; 81001; 81025; 83690; 85025; 87086; 96374; 96375; 96376; 99284; J1170; Q9967; 81003; 87077